=== PATIENT | female | born 1995 | race Caucasian/White ===

== ENCOUNTER 2023-09-26 08:59 | Emergency (ER) | payer OTHER, SELFPAY ==
--- NOTE | ~2023-09-26 | CT_ITS ---
EXAMINATION: CT brain wo con DATE: 09/26/2023 10:04 INDICATION: Fall. Possible seizure. TECHNIQUE: Computed tomography (CT) of the head was performed without intravenous contrast. The mA wa s adjusted according to patient size. Iterative reconstruction technique was employed. Exam dose: 52 9.67 mGy-cm total exam DLP. COMPARISON: None FINDINGS: No skull fracture. The mastoid air cells and included paranasal sinuses are normally aerate d. Normal ventricular size. No intracranial mass lesion or hemorrhage or encephalomalacia or cerebrovasc ular accident. No midline shift or mass effect. Normal [place]-white matter differentiation. IMPRESSION: No skull fracture or significant intracranial abnormality Reviewed, dictated and finalized at [facility]. Reviewed, dictated and finalized at [facility]. WORKER PERSON
[2023-09-26 09:00] VITALS: BP 118/74; PULSE 96; RESP 16; TEMP 36.4; O2SAT 100
--- NOTE | 2023-09-26 09:07 | ECG_ITS ---
Measurements Intervals [place] Rate: 94 P: 36 WA: 120 QRS: 40 QRSD: 86 T: 5 QT: 341 QTc: 428 Interpretive Statements SINUS RHYTHM BORDERLINE ST-T WAVE ABNORMALITY- ANT/INF LEADS BORDERLINE ECG NO PREVIOUS ECG AVAILABLE FOR COMPARISON Electronically Signed On 09-26-2023 15:12:23 [employer] LINE by Rasta Frank D.O.
[2023-09-26 09:31] LABS: Basophils Absolute Auto 0.1 K/mm3 (0.0-0.1); Basophils Percent Auto 0.9 % (0.2-1.2); Eosinophils Absolute Auto 0.1 K/mm3 (0-0.3); Eosinophils Percent Auto 1.4 % (0-4.4); Hematocrit 42.9 % (37.0-47.0); Hemoglobin 13.6 g/dL (12.0-15.0); Immature Granulocyte Absolute 0.02 K/mm3 (0.00-0.031); Immature Granulocyte Percent A 0.4 % (0-0.5); Immature Platelet Fraction Pct 7.8 % (0.9-11.2); Lymphocytes Percent Auto 33.7 % (18.3-44.2); Mean Corpuscular HGB Conc 31.7 g/dl (32-36); Mean Corpuscular Hemoglobin 29.1 pg (26-34); Mean Corpuscular Volume 91.9 fl (80-100); Mean Platelet Volume 11.6 fl (7.4-10.4); Monocytes Absolute Auto 0.3 K/mm3 (0.1-0.6); Monocytes Percent Auto 5.5 % (2.6-8.5); Neutrophils Absolute Auto 3.3 K/mm3 (1.3-6.7); Neutrophils Percent Auto 58.1 % (45.5-73.1); Platelet Count Result 147 k/mm3 (150-375); Red Blood Count 4.67 M/mm3 (4.2-5.4); Red Cell Distribution Width 12.8 % (11.5-14.5); White Blood Count 5.6 K/mm3 (4.5-10.0)
[2023-09-26 09:32] VITALS: BP 114/16; BP 117/71; PULSE 84; PULSE 85
[2023-09-26 09:33] VITALS: BP 116/69; PULSE 89
[2023-09-26 09:33] LABS: Glucose Point of Care 103 mg/dl (65-105)
[2023-09-26 09:41] LABS: Alanine Aminotransferase 21 U/L (6-35); Albumin Level 4.7 g/dL (3.5-5.1); Alkaline Phosphatase 57 U/L (38-126); Anion Gap 8 mmol/L (8-16); Aspartate Amino Transferase 30 U/L (14-36); Bilirubin,Total 0.8 mg/dL (0.2-1.3); Blood Urea Nitrogen 9 mg/dL (7-17); Carbon Dioxide 27 mmol/L (22-30); Chloride 104 mmol/L (98-107); Estimated Glomerular Filt Rate > 60; Glucose 88 mg/dL (65-110); Potassium 4.1 mmol/L (3.4-5.0); Sodium 139 mmol/L (137-145)
--- NOTE | 2023-09-26 09:41 | ED.GENADULT ---
HPI - General Adult General Chief complaint: Syncope <Juan Manuel Villeda PA-C - Last Filed: 09/26/23 18:04> Stated complaint: syncopy/seizure/ hit head? <Juan Manuel Villeda PA-C - Last Filed: 09/26/23 18:04> Source: patient <Juan Manuel Villeda PA-C - Last Filed: 09/26/23 18:04> Mode of arrival: EMS <JUANITO Lassiter Last Filed: 09/26/23 18:04> Limitations: no limitations <Juan Manuel Villeda PA-C - Last Filed: 09/26/23 18:04> History of Present Illness HPI narrative: This is a 27-year-old female who presents to the ED via EMS for chief complaint of seizure versus syncope that occurred at work today. Per EMS the witnesses at work reported to EMS that the patient fell to the floor and was shaking but this only lasted few seconds. EMS states that she was confused upon their arrival and that her blood sugar was 52. They gave dextrose infusion IV and her mental status quickly returned back to normal. Patient reports that she is unsure what today. She states that she has had a couple similar episodes many years ago as a kid. Denies any seizure history. Denies cardiac history. Denies any current pain, numbness, weakness, speech difficulty, vision change. denies any preceding chest pain, shortness of breath. She states she is currently asymptomatic. <Juan Manuel Villeda PA-C - Last Filed: 09/26/23 18:04> Related Data Allergies/adverse reactions: Allergies Allergy/AdvReac Type Severity Reaction Status Date / Time No Known Allergies Allergy Unverified 03/28/14 23:58 <Juan Manuel Villeda PA-C - Last Filed: 09/26/23 18:04> Review of Systems Review of Systems: All systems as dictated in HPI <JUANITO Lassiter Last Filed: 09/26/23 18:04> Exam Narrative: GENERAL: Well-appearing, well-nourished, and in no acute distress. Does not appear to be postictal HEAD: Normocephalic, atraumatic. EYES: PERRLA and EOMI. ENT: Nares clear, no rhinorrhea or epistaxis. Mucous membranes moist. Oropharynx without tonsillar hypertrophy exudate or other lesions. no tongue lacerations. NECK: Supple. No adenopathy or masses. CHEST: No respiratory distress. Clear to auscultation. No wheezes rales or rhonchi HEART: Regular rate and rhythm. No murmur heard. Normal peripheral pulses. ABDOMEN: Soft, nontender, nondistended, normal active bowel sounds. MSK: Normal range of motion. No edema. SKIN: Warm, dry, no rash. NEURO: Alert and oriented x3. No focal deficits. cranial nerves 2-12 intact. PSYCH: Normal mood and affect. <Juan Manuel Villeda PA-C - Last Filed: 09/26/23 18:04> Course ACCOUNTS PAYABLE ASSOCIATE/PA Physician Supervision I agree with midlevel documentation; I performed the medical decision making component of this evaluation. <Consuelo Verdugo MD - Last Filed: 09/26/23 18:10> Vital Signs Vital signs: Vital Signs Temperature 97.6 F 09/26/23 09:00 Pulse Rate 96 09/26/23 09:00 Respiratory Rate 16 09/26/23 09:00 Blood Pressure 118/74 09/26/23 09:00 Pulse Oximetry 100 09/26/23 09:00 Oxygen Delivery Room Air 09/26/23 09:00 Temperature 97.6 F 09/26/23 09:00 Pulse Rate 97 09/26/23 11:22 Respiratory Rate 18 09/26/23 11:22 Blood Pressure 119/63 09/26/23 11:22 Pulse Oximetry 100 09/26/23 11:22 Oxygen Delivery Room Air 09/26/23 09:00 <Juan Manuel Villeda PA-C - Last Filed: 09/26/23 18:04> Vital Signs Temperature 97.6 F 09/26/23 09:00 Pulse Rate 96 09/26/23 09:00 Respiratory Rate 16 09/26/23 09:00 Blood Pressure 118/74 09/26/23 09:00 Pulse Oximetry 100 09/26/23 09:00 Oxygen Delivery Room Air 09/26/23 09:00 Temperature 97.6 F 09/26/23 09:00 Pulse Rate 97 09/26/23 11:22 Respiratory Rate 18 09/26/23 11:22 Blood Pressure 119/63 09/26/23 11:22 Pulse Oximetry 100 09/26/23 11:22 Oxygen Delivery Room Air 09/26/23 09:00 <Consuelo Verdugo MD - Last Filed: 09/26/23 18:10> Medical Decision Making MDM Narrative Medical decision eric
[2023-09-26] MEDS: SODIUM CHLORIDE 0.9% IV 1,000 ML 999 ML IV CONT (10:19)
[2023-09-26 11:22] VITALS: BP 119/63; PULSE 97; RESP 18; O2SAT 100
[2023-09-26 11:30] LABS: Glucose Point of Care 102 mg/dl (65-105)
== END 2023-09-26 11:31 | disposition home or self-care (01) ==
PROVIDERS: Emergency Medicine; Emergency Provider Physician Assistant; PCP Internal Medicine
DX: R55 Syncope and collapse (principal); R94.31 Abnormal electrocardiogram [ECG] [EKG]
CPT/HCPCS: 36415; 70450; 80053; 82948; 85025; 85055; 93005; 96374; 99284; J7030